=== PATIENT | female | born 1965 | race Caucasian/White ===

== ENCOUNTER 2020-03-17 11:34 | Emergency (ER) | payer BC, MEDICAID ==
[2020-03-17] MEDS: Ketorolac 60 MG/2 ML SDV IM ONE (12:15)
--- NOTE | 2020-03-17 18:41 | CT ---
CLINICAL DATA: Headache. UNENHANCED BRAIN CT, 17 MARCH 2020: No priors. No masses or mass effect. No intracranial hemorrhage. No evidence of acute or subacute infarct. No osseous abnormalities. IMPRESSION: No acute intracranial abnormalities. Job: [id number] [facility]
== END 2020-03-17 13:55 | disposition home or self-care (01) ==
LOC: LB.ED 11:34
DX: G44.209 Tension-type headache, unspecified, not intractable (principal); R55 Syncope and collapse; Z20.828 Contact with and (suspected) exposure to other viral communicable diseases
CPT/HCPCS: 36415; 70450; 80048; 80061; 81001; 83880; 85025; 85610; 96372; 99283; 99284-25; J1885; U0002